=== PATIENT | female | born 1965 | race Hispanic/Latino ===

== ENCOUNTER → 2017-10-02 | Outpatient (CLI) | payer BC | END | disposition home or self-care (01) | LOC: RAH 08:44 | PROVIDERS: ATTEND Physician Assistant Medical | DX: Z12.31 Encounter for screening mammogram for malignant neoplasm of breast (principal) | CPT/HCPCS: 77067 ==

== ENCOUNTER 2018-04-11 05:53 | Day surgery (SDC) | payer BC ==
[2018-04-09 17:11] VITALS: BP 119/61
[2018-04-09 17:21] LABS: BASOPHILS % (AUTO) 0.4 % (0.0-5.0); EOSINOPHILS % (AUTO) 1.3 % (0.0-8.0); HEMATOCRIT 39.7 % (36-48); MEAN CORPUSCULAR HEMOGLOBIN 30.2 pg (27.0-33.0); MEAN CORPUSCULAR HGB CONC 32.9 g/dL (32.0-36.0); MEAN CORPUSCULAR VOLUME 91.6 fL (79-99); MONOCYTES % (AUTO) 7.1 % (3.0-13.0); NEUTROPHILS % (AUTO) 52.2 % (40.0-77.0); NUCLEATED RED BLOOD CELLS 0.2 % (0.0-0.19); PLATELET COUNT (AUTO) 246 K/uL (130-400); RED BLOOD CELL COUNT(AUTO) 4.34 MIL/uL (4.00-5.50); RED CELL DISTRIBUTION WIDTH 13.6 % (11.0-15.5)
[~2018-04-11] VITALS: Ht 166.4 cm; Wt 76.7 kg
[2018-04-11] VITALS (13 sets, daily range): BP systolic 138–157; BP diastolic 80–88
[2018-04-11] MEDS ORDERED: LACTATED RINGERS 1000ML 1,000 ML IV ONE (06:20)
[2018-04-11] MEDS ORDERED: CEFAZOLIN SODIUM 1 GM VIAL ONE (06:20)
[2018-04-11] MEDS ORDERED: CALDOLOR 800MG+NS 250ML 250 ML IV ONE (06:36)
--- NOTE | 2018-04-11 06:45 | NUR ---
VALUABLES: CLOTHING AND GLASSES GIVEN TO SPOUSE - RODGER TOMAS
[2018-04-11] MEDS ORDERED: STRONG IODINE SOLUTION 30ML BOTTLE ONE (06:56)
[2018-04-11] MEDS ORDERED: LIDOCAINE PF 2% 5ML ABBOJECT ONE (07:02)
[2018-04-11] MEDS ORDERED: FENTANYL CITRATE PF 50 MCG/1 ML 2ML VIAL ONE (07:02)
[2018-04-11] MEDS ORDERED: PROPOFOL 10 MG/ML 20ML VIAL IV ONE (07:02)
[2018-04-11] MEDS ORDERED: DEXAMETHASONE SOD PHOSPHATE 4 MG/ML 1ML VIAL ONE (07:02)
[2018-04-11] MEDS ORDERED: ONDANSETRON HCL 4 MG/2 ML VIAL ONE (07:03)
[2018-04-11] MEDS ORDERED: CALDOLOR 800MG+NS 250ML 250 ML IV PRN (08:00)
[2018-04-11] MEDS ORDERED: CEFAZOLIN SODIUM 1 GM VIAL IVP PRN (08:00)
[2018-04-11] MEDS ORDERED: LACTATED RINGERS 1000ML 1,000 ML IV SCH (08:00)
== END 2018-04-11 09:30 | disposition home or self-care (01) ==
LOC: DAH 05:53
PROVIDERS: ATTEND Obstetrics & Gynecology
DX: N87.9 Dysplasia of cervix uteri, unspecified (principal); Z98.890 Other specified postprocedural states; E11.9 Type 2 diabetes mellitus without complications; I10 Essential (primary) hypertension
CPT/HCPCS: 36415; 57520; 85025; 86850; 86900; 86901; A4218; J0690; J1100; J2001; J2405; J2704; J3010; J7120; 88307; A4351; J1741

== ENCOUNTER → 2019-02-13 | Outpatient (CLI) | payer BC | END | disposition home or self-care (01) | LOC: RAH 08:08 | PROVIDERS: ATTEND Obstetrics & Gynecology | DX: Z12.31 Encounter for screening mammogram for malignant neoplasm of breast (principal) | CPT/HCPCS: 77067 ==

== ENCOUNTER → 2025-03-19 | Outpatient (CLI) | payer BC | END | disposition home or self-care (01) | LOC: RAH 13:02 | PROVIDERS: ATTEND Obstetrics & Gynecology | DX: R92.333 Mammographic heterogeneous density, bilateral breasts (principal) ==